=== PATIENT | male | born 1990 | race Caucasian/White ===

== ENCOUNTER 2017-08-06 08:36 | Inpatient (IN) ==
--- NOTE | 2017-08-06 09:10 | ED ---
[facility] General Chief Complaint: Psychiatric Symptoms Stated Complaint: Psych Eval/ [employer] Time Seen by Provider: 08/06/17 08:59 Source: patient Mode of arrival: ambulatory Limitations: no limitations History of Present Illness HPI Narrative: 27-year-old male presents to emergency department under [employer] act with law enforcement. Riggins act report states the patient made a statement that he was going to blow up [employer]. The patient says that someone said he said this, but he did not. He denies suicidal or homicidal ideations. Admits to using illicit drugs in 2017, but not since. He admits to smoking meth and crack prior to the new year. He denies alcohol use. Reports tobacco use and smokes cigars. Denies auditory or visual hallucinations. Denies psychiatric history. Denies chest pain, shortness breath, abdominal pain, nausea, vomiting , change in urine or stool. Reports chronic back pain. No known aggravating or relieving factors. Symptoms are moderate to severe in severity. Onset unknown. Duration unknown. Denies significant past medical history. No primary care provider. Allergies gentamicin. Related Data Home Medications Medication Instructions Recorded Confirmed No Known Home Medications 08/06/17 08/06/17 Allergies Allergy/AdvReac Type Severity Reaction Status Date / Time gentamicin Allergy Unknown Anaphylaxis Verified 08/06/17 09:17 Review of Systems ROS Unobtainable All other systems reviewed negative except as stated in [facility] Medical History Medical History Kidney anomaly, congenital (Acute) Surgical History Surgical History No history of previous surgery (Acute) Social History Social History Substance History: Past History Second Hand Smoke Exposure: Yes Smoking Status: Heavy tobacco smoker Tobacco Type: Cigarettes How Often Do You Have a Drink Containing Alcohol: Never Recent Travel in [facility] [place] within the Last 8 Weeks: No Recent Out of Country Travel within the Last 8 Weeks: No Exam Narrative Exam Narrative: GENERAL: Thin male patient, in no acute distress; disheveled SKIN: Warm and dry. HEAD: Atraumatic. Normocephalic. EYES: Pupils equal and round. ENT: Mucosa pink and moist. NECK: Supple. Trachea midline. CARDIOVASCULAR: Regular rate and rhythm. No murmur appreciated. RESPIRATORY: No accessory muscle use. Clear to auscultation. Breath sounds equal bilaterally. GASTROINTESTINAL: Abdomen soft, non-tender, nondistended. Hepatic and splenic margins not palpable. Bowel sounds are active 4 quadrants. MUSCULOSKELETAL: No obvious deformities. No clubbing. No cyanosis. No edema. BACK: No CVA tenderness. NEUROLOGICAL: Awake and alert. Oriented 3. No obvious cranial nerve deficits. Motor grossly within normal limits. Normal speech. Moves all extremities. 5/5 strength to all extremities. PSYCHIATRIC: No delusional thought processes. No hallucinations. Course Initial Documented Vital Signs Temperature 99 F 08/06/17 08:49 Pulse Rate 75 08/06/17 08:49 Respiratory Rate 18 08/06/17 08:49 Blood Pressure 125/90 08/06/17 08:49 Pulse Oximetry 98 08/06/17 08:49 Last Documented Vital Signs Temperature 98.0 F 08/06/17 18:00 Pulse Rate 63 08/06/17 18:00 Respiratory Rate 16 08/06/17 18:00 Blood Pressure 135/98 H 08/06/17 18:00 Pulse Oximetry 98 08/06/17 18:00 Medical Decision Making MDM Narrative Medical decision making narrative: Patient presents under a Riggins act. Physical examination and vital signs are essentially unremarkable. Patient has no medical complaints to report. Psych screen has been ordered. If the laboratory results are unremarkable, the patient will be medically cleared for psychiatric evaluation and disposition. Differential Diagnosis Differential Diagnosis: Medical clearance for psychiatric evaluation, homicidal ideation, substance abuse Lab Data Result diagrams: 08/06/17 08:55 08/06/17 08:55 Lab Results 08/06/17 08/06/17 08/06/17 Range/Units 08:55 08:55 09:17 WBC 7.5 (4.0-11.0) th/mm3 RBC 5.12 (4.50-5.90) mil/mm3 Hgb 15.8 (13.0-17.0) gm/dL Hct 47.2 (39.0-51.0) % MCV 92.2 (80.0-100.0) fL MCH 30.9 (27.0-34.0) pg MCHC 33.6 (32.0-36.0) % RDW 13.5 (11.6-17.2) % Plt Count 262 (150-450) th/mm3 MPV 7.7 (7.0-11.0) fL Neut % (Auto) 57.0 (16.0-70.0) % Lymph % (Auto) 34.2 (9.0-44.0) % [place] % (Auto) 6.8 (0.0-8.0) % Eos % (Auto) 0.9 (0.0-4.0) % Baso % (Auto) 1.1 (0.0-2.0) % Neut # (Auto) 4.3 (1.8-7.7) th/mm3 Lymph # (Auto) 2.6 (1.0-4.8) th/mm3 [place] # (Auto) 0.5 (0.0-0.9) th/mm3 Eos # (Auto) 0.1 (0.0-0.4) th/mm3 Baso # (Auto) 0.1 (0.0-0.2) th/mm3 WBC Differential . Differential Comment Auto diff final Sodium 140 (136-145) meq/L Potassium 3.9 (3.5-5.1) meq/L Chloride 106 (98-107) meq/L Carbon Dioxide 23.5 (21.0-32.0) meq/L Anion Gap 11 (5-15) meq/L BUN 12 (7-18) mg/dL Creatinine 1.05 (0.60-1.30) mg/dL Estimated GFR 84 L (>89) mL/min Random Glucose 95 (74-106) mg/dL Calcium 9.1 (8.5-10.1) mg/dL Total Bilirubin 0.4 (0.2-1.0) mg/dL AST 31 (15-37) U/L ALT 28 (12-78) U/L Alkaline Phosphatase 77 (45-117) U/L Total Protein 7.7 (6.4-8.2) g/dL Albumin 4.5 (3.4-5.0) g/dL TSH 0.727 (0.358-3.740) uIU/mL Salicylates 5.0 (2.8-20.0) mg/dL Acetaminophen Less than 2.0 L (10.0-30.0) mcg/mL Serum Alcohol Less than 3 (0-5) mg/dL Discharge Plan Discharge Disposition Patient Disposition: 30 Still Patient Discharge Condition Condition: Stable Discharge Details Discharge Problem: Medical clearance for psychiatric admission Physicians Team ED Provider: Nicole Baig ED Midlevel Provider: Angelina Thakkar Primary Care Provider: Jorge Casas Rxs /Orders / Referrals /Forms Prescriptions: No Action No Known Home Medications RF: 0 Status ED Status: Medically Cleared
[2017-08-06 11:38] LABS: Baso # (Auto) 0.1 th/mm3 (0.0-0.2); Baso % (Auto) 1.1 % (0.0-2.0); Eos # (Auto) 0.1 th/mm3 (0.0-0.4); Eos % (Auto) 0.9 % (0.0-4.0); Hematocrit 47.2 % (39.0-51.0); Hemoglobin 15.8 gm/dL (13.0-17.0); Lymph # (Auto) 2.6 th/mm3 (1.0-4.8); Lymph % (Auto) 34.2 % (9.0-44.0); Mean Corpuscular HGB Conc 33.6 % (32.0-36.0); Mean Corpuscular Hemoglobin 30.9 pg (27.0-34.0); Mean Corpuscular Volume 92.2 fL (80.0-100.0); Mean Platelet Volume 7.7 fL (7.0-11.0); Mono # (Auto) 0.5 th/mm3 (0.0-0.9); Mono % (Auto) 6.8 % (0.0-8.0); Neut # (Auto) 4.3 th/mm3 (1.8-7.7); Platelet Count 262 th/mm3 (150-450); Red Blood Count 5.12 mil/mm3 (4.50-5.90); Red Cell Distribution Width 13.5 % (11.6-17.2); White Blood Count 7.5 th/mm3 (4.0-11.0)
[2017-08-06 12:25] LABS: Alanine Aminotransferase 28 U/L (12-78); Albumin 4.5 g/dL (3.4-5.0); Alkaline Phosphatase 77 U/L (45-117); Anion Gap 11 meq/L (5-15); Aspartate Aminotransferase 31 U/L (15-37); Blood Urea Nitrogen 12 mg/dL (7-18); Calcium 9.1 mg/dL (8.5-10.1); Carbon Dioxide 23.5 meq/L (21.0-32.0); Chloride 106 meq/L (98-107); Glomerular Filtration Rate 84 mL/min (>89); Glucose,Random 95 mg/dL (74-106); Potassium 3.9 meq/L (3.5-5.1); Sodium 140 meq/L (136-145); Thyroid Stimulating Hormone 0.727 uIU/mL (0.358-3.740); Total Protein 7.7 g/dL (6.4-8.2)
[2017-08-06] MEDS ORDERED: LORazepam 1 MG Tablet PO PRN (23:23)
[2017-08-06] MEDS ORDERED: Aluminum/Magnesium/Simethacone Susp 30 ML UDC PO PRN (23:23)
[2017-08-06] MEDS ORDERED: Acetaminophen 325 MG Tablet PO PRN (23:23)
[2017-08-07] MEDS ORDERED: Senna/Docusate Sodium 8.6/50 MG Tablet PO SCH (09:00)
[2017-08-07 11:29] LABS: Calcium 9.8 mg/dL (8.5-10.1); Carbon Dioxide 29.4 meq/L (21.0-32.0); Potassium 4.3 meq/L (3.5-5.1)
[2017-08-07 11:33] LABS: Chol/HDL Ratio 2.99 Ratio; HDL Cholesterol 43.1 mg/dL (40.0-60.0)
--- NOTE | 2017-08-07 11:36 | P.HPPSY ---
Provisional Diagnosis Admission Date: August 06, 2017 21:41 [place] I.: 1. Adjustment disorder, unspecified Rule out adjustment disorder with disturbance of emotions and conduct Rule out some degree of more persistent underlying mental illness [place] II.: Deferred Competence Certification of Person's Competence To Provide Express and Informed Consent I have personally examined Baldev Fulton, a person being served at [facility] on, August 07, 2017 1136. Express and informed consent means consent voluntarily given in writing, by a competent person, after sufficient explanation and disclosure of the subject matter involved to enable the person to make a knowing and willful decision without any element of force, fraud, deceit, duress, or other form of constraint or coercion. This person is 18 years of age or older, is not now known to be incompetent to consent to treatment with a guardian advocate, and does not have a health care surrogate or proxy currently making medical treatment decisions. I have found this person to be one of the following: [] Competent to provide express and informed consent, as defined above, for voluntary admission to this facility and is competent to provide express and informed consent for treatment. He/she has the consistent capacity to make well reasoned, willful, and knowing decisions concerning his or her medical or mental health treatment. The person fully and consistently understands the purpose of the admission for examination/placement and is fully capable of personally exercising all rights assured [place] [] Incompetent to provide express and informed consent to voluntary admission, and this is incompetent to provide express and informed consent to treatment. The person must be transferred to involuntary status and a petition for a guardian advocate filed with the Circuit Court. [x] Refusing to provide express and informed consent to voluntary admission but is competent to provide express and informed consent for treatment. The person must be discharged or transferred to involuntary status. Form shall be completed within 24 hours of a person's arrival at the receiving facility and filed in the clinical record of each person: 1. Admitted on a voluntary basis 2. Permitted to provide express and informed consent to his/her own treatment 3. Allowed to transfer from involuntary to voluntary status 4. Prior to permitting a person to consent to his or her own treatment after having been previously found incompetent to consent to treatment. History of Present Illness Capacity: Has capacity (to consent for meds) Chief Complaint: Riggins Act History of Present Illness: Mr. Fulton is a 27 year-old male with no reported past psychiatric history who is admitted under a [place]ins Act from [place] alleging "Baldev told someone he will blow up [employer]." Reviewing the electronic medical record, I see no previous psychiatric contact within our system. Patient seen and examined with nurse. Chart reviewed. Case discussed with nursing staff. On my exam, patient adamantly denies the allegations in the Riggins Act. In fact, the patient notes that he is quite fond of the particular [employer] in question and was looking forward to returning to it once he could ( patient reports he had been trespassed from the [employer] some time ago). He maintains that he told the officer "I barely touched the door" and the officer misheard him to say "I'm gonna blow up the next store." Patient denies any suicidal or homicidal ideation, intent or plan noting "if I would've, it would have been done by now." I can elicit no depressive or hypomanic/manic symptoms. He denies any AVH, and I can elicit no frankly delusional material, although the patient does seem a little tense and guarded. The remainder of the psychiatric ROS is negative. The patient has no acute physical complaints. The nurse does bring to my attention a lesion on his R neck, but this appears to be a scar and patient notes it is several months old. Past psychiatric history: Patient denies a history of psychiatric diagnosis. He denies a history of inpatient or outpatient psychiatric treatment. He denies a history of suicide attempts. Family history: The patient denies a family history of mental illness or suicide. Chemical dependency history: The patient reports that he used to abuse synthetic cannabis but has not used any of this in 8 months. He denies any current substance use. Social history: The patient is presently homeless. He is single with no children. He has a grade 9 education and works under the table. He denies any history. He denies any active legal issues but notes that he has previous charges of marijuana possession as an adult and grand theft as a juvenile. No reported history of violent crime. He denies any access to guns or firearms. He denies any history of trauma. Past medical history: Patient denies any past medical history. Medications: Patient takes an occasional multivitamin. Allergies: To cat dander and gentamicin. - Inpatient Certification I certify that the inpatient services were ordered in accordance with Medicare regulations governing the order. This includes certification that hospital inpatient services are reasonable and necessary and in the case of services not specified as inpatient-only under 42 CFR 419.22(n), that they are appropriately provided as inpatient services in accordance to with the 2-midnight benchmark under 43 CFR 412.3(e) I certify that inpatient psychiatric hospital services are medically necessary. Evaluation and treatment and/or diagnostic testing are expected to improve the patient's condition. The patient needs on a daily basis, active treatment furnished directly by or requiring the supervision of inpatient psychiatric facility personnel. Estimated Total Length of Stay (Days): 3 Plans for Post Hospital Care: Not yet determined Review of Systems All other systems reviewed negative except as stated in [facility] - History History Provided By: Patient - Medical History Medical History: Medical History (Last Reviewed 08/06/17 @ 09:08 by JENNIE Owens) Kidney anomaly, congenital - Surgical History Surgical History: Surgical History (Last Updated 08/06/17 @ 11:15 by Ginger San) No history of previous surgery - Tobacco History Second Hand Smoke Exposure: No Tobacco Use In Past 30 Days: Yes Smoking Status: Current every day smoker Tobacco Type: Cigarettes - Alcohol History How Often Do You Have a Drink Containing Alcohol: Never - Substance Use History Substance History: No History of Abuse - Substance Use Type Methamphetamine Status: Early Remission Reason for Use: Get High Comment: Pt refused to answer ho wlong it has been since his last use. - Travel History Recent Travel in the [place] Within the Last 8 Weeks: No Recent Travel Out of the Country Within the Last 8 Weeks: No - Immunization History Tetanus Immunization: Unable to Assess Hx Influenza Vaccine This Season: Unable to Assess Quality Measures - Patient Strengths Patient's strengths (minimum of 2): Attending to basic needs. Verbally fluent. Medications and Allergies Active Medications: Active Medications Acetaminophen (Tylenol) 650 mg PO Q4H PRN PRN Reason: Pain 1-5 or Temp >101F Al Hydrox/Mg Hydrox/Simethicone (Mag-Al Plus Susp Liq) 30 ml PO Q6H PRN PRN Reason: DYSPEPSIA Al Hydroxide/Mg Hydroxide (Milk Of Magnesia Liq) 30 ml PO DAILY PRN PRN Reason: CONSTIPATION Lorazepam (Ativan) 1 mg PO Q6H PRN PRN Reason: MODERATE TO SEVERE ANXIETY Lorazepam (Ativan Inj) 1 mg IM Q6H PRN PRN Reason: MODERATE TO SEVERE ANXIETY Nicotine (Habitrol 21 Mg Patch.24 Hr) 1 patch T-DERMAL DAILY LUIS Patch Removal (Remove Old Patch) 1 each T-DERMAL HS LUIS Allergies Allergy/AdvReac Type Severity Reaction Status Date / Time gentamicin Allergy Unknown Anaphylaxis Verified 08/06/17 09:17 cat dander AdvReac Unknown Unknown Verified 08/07/17 15:48 Home Medications Medication Instructions Recorded Confirmed Type No Known Home Medications 08/06/17 08/06/17 History Results - Labs CBC & Chem 7: 08/06/17 08:55 08/07/17 09:57 Labs: Laboratory Results - last 24 hr 08/06/17 08/06/17 08/06/17 08:55 08:55 09:17 WBC 7.5 RBC 5.12 Hgb 15.8 Hct 47.2 MCV 92.2 MCH 30.9 MCHC 33.6 RDW 13.5 Plt Count 262 MPV 7.7 Neut % (Auto) 57.0 Lymph % (Auto) 34.2 [place] % (Auto) 6.8 Eos % (Auto) 0.9 Baso % (Auto) 1.1 Neut # (Auto) 4.3 Lymph # (Auto) 2.6 [place] # (Auto) 0.5 Eos # (Auto) 0.1 Baso # (Auto) 0.1 WBC Differential . Differential Comment Auto diff final Sodium 140 Potassium 3.9 Chloride 106 Carbon Dioxide 23.5 Anion Gap 11 BUN 12 Creatinine 1.05 Estimated GFR 84 L Random Glucose 95 Calcium 9.1 Total Bilirubin 0.4 AST 31 ALT 28 Alkaline Phosphatase 77 Total Protein 7.7 Albumin 4.5 Triglycerides Cholesterol LDL Cholesterol, Calc HDL Cholesterol Cholesterol/HDL Ratio TSH 0.727 Salicylates 5.0 Acetaminophen Less than 2.0 L Serum Alcohol Less than 3 08/07/17 09:57 WBC RBC Hgb Hct MCV MCH MCHC RDW Plt Count MPV Neut % (Auto) Lymph % (Auto) [place] % (Auto) Eos % (Auto) Baso % (Auto) Neut # (Auto) Lymph # (Auto) [place] # (Auto) Eos # (Auto) Baso # (Auto) WBC Differential Differential Comment Sodium 140 Potassium 4.3 Chloride 103 Carbon Dioxide 29.4 Anion Gap 8 BUN 18 Creatinine 1.17 Estimated GFR 74 L Random Glucose 50 L Calcium 9.8 Total Bilirubin AST ALT Alkaline Phosphatase Total Protein Albumin Triglycerides 126 Cholesterol 129 LDL Cholesterol, Calc 61 HDL Cholesterol 43.1 Cholesterol/HDL Ratio 2.99 TSH Salicylates Acetaminophen Serum Alcohol Labs reviewed. Urine toxicology not available for my review. Exam Vital signs: Vital Signs 08/06/17 14:00 08/06/17 18:00 08/07/17 00:07 Temperature 98.0 F 98.0 F 97.8 F Pulse Rate 63 63 79 Respiratory Rate 16 16 20 Blood Pressure 118/92 H 135/98 H 135/93 H Pulse Oximetry 98 98 98 08/07/17 05:36 08/07/17 05:51 Temperature 98.1 F 98.1 F Pulse Rate 46 L 46 L Respiratory Rate 18 18 Blood Pressure 118/64 118/64 Pulse Oximetry 98 Intake & Output 08/06/17 08/07/17 08/07/17 18:59 06:59 18:59 Weight 50.033 kg Other: Weight On Admission 46.9 kg Narrative: Physical examination completed by ED provider. On my examination today, the patient appears to be in no acute physical distress. No motor abnormalities noted. Labs and vital signs reviewed: Mental Status Examination Appearance: Appropriate Consciousness: Alert Orientation: x4 Motor Activity: Normal gait Speech: Unremarkable Language: Adequate Fund of Knowledge: Adequate Attention and Concentration: Adequate Memory: Unremarkable (Grossly intact on clinical exam) Mood: Other (No reported issues with mood) Affect: Anxious (Mild) Thought Process & Associations: Intact Thought Content: Appropriate Hallucination Type: None Delusion Type: Other (Somewhat guarded but no [place] delusions) Suicidal Ideation: No Suicidal Plan: No Suicidal Intention: No Homicidal Ideation: No Homicidal Plan: No Homicidal Intention: No Mental Status Exam Remarks: Insight and judgment are unclear Assessment and Plan - Assessment (1) Adjustment disorder Code(s): F43.20 - Adjustment disorder, unspecified Status: Acute - Plan Plan: 27-year-old male with psychiatric history as detailed above who presents under Riggins act. On my examination today, the patient adamantly denies the allegations in the Riggins act. He reports a paucity of psychiatric symptomatology. He does seem a little tense and guarded on examination, although this may be situational as he feels that he has been wrongly detained by police. Given our lack of psychiatric history with this patient, it seems prudent to observe the patient on the unit as allowed under the Riggins act. Admit inpatient. Continue to observe under the Riggins act. Patient does not believe he has any psychiatric issues and is not interested in psychotropic medications, and I have therefore ordered none. Vitals every shift. Counselor to see. Collateral information. Patient tells me that he has no went whom I can contact for collateral. Disposition planning. Estimated length of stay: 2- 3 days. Justification for Continued Inpatient Stay: Observing for impairment in safety Discharge Planning: Pending outcome of observation Request Healthcare Surrogate/Guardian Advocate?: No (1) Adjustment disorder Qualifiers: Adjustment disorder type: unspecified type Qualified Code(s): F43.20 - Adjustment disorder, unspecified
[2017-08-07 17:35] LABS: Hemoglobin A1c 5.3 % (4.3-6.0)
--- NOTE | 2017-08-08 11:50 | P.PNPSY ---
Subjective Chief Complaint: Riggins Act Remarks: Patient seen and examined with nurse. Chart reviewed. Case discussed with nursing staff. Case also discussed with patent legal assistant who reports patient's Riggins act will tomorrow morning at 08: 36. On my examination today, the patient presents as irritable. He denies any SI or HI. He denies any AVH but appears a little internally preoccupied. Additionally, following my evaluation I hear him yelling loudly and angrily at some unseen person. One of the floor staff, sitting one-to-one with another patient, tells me that the patient has been behaving in this fashion all morning. Patient is paranoid, particularly regarding blood draw. He implies that we are using his blood for some nefarious purpose. He continues to refuse to provide any numbers for collateral saying that even if he were willing to do so he has no numbers to provide. He refuses review of systems today saying that his physical health is "not this hospital's concern." I did try to educate the patient regarding his laboratory results. Vital Signs Temp Pulse Resp BP Pulse Ox 08/08/17 10:40 98.1 F 67 18 117/69 97 08/08/17 05:28 98.1 F 44 L 18 109/64 99 08/07/17 17:49 98.3 F 52 L 18 122/68 98 Intake and Output 08/07/17 08/08/17 08/08/17 22:59 06:59 14:59 Other: Weight 55.9 kg Patient Weight 08/09/17 06:59 Weight 55.9 kg Laboratory Results - last 24 hr 08/07/17 09:57 Hemoglobin A1c 5.3 Labs reviewed. Review of Systems other (Patient refused) Mental Status Examination Appearance: Disheveled Consciousness: Alert, Vigilant Orientation: x4 Motor Activity: Other (No motor abnormalities noted) Speech: Unremarkable Language: Adequate Fund of Knowledge: Adequate Attention and Concentration: Adequate Memory: Unremarkable (Grossly intact on clinical exam) Mood: Other (Dysphoric) Affect: Other (Restricted) Thought Process & Associations: Intact Thought Content: Delusional Hallucination Type: Other (Responding to internal stimuli) Delusion Type: Paranoid Suicidal Ideation: No Suicidal Plan: No Suicidal Intention: No Homicidal Ideation: No Homicidal Plan: No Homicidal Intention: No Insight: Poor Judgment: Poor Assessment and Plan - Assessment (1) Unspecified psychosis Code(s): F29 - Unspecified psychosis not due to a substance or known physiological condition Status: Acute - Plan Plan: With the benefit of further observation, it seems likely that the patient is 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 I fear that he is unpredictable with respect to risk for violence while the psychotic process is untreated and ongoing. I suspect he will require care beyond the expiration of the Riggins act to further assess and reduce this risk. I will initiate a petition for involuntary psychiatric hospitalization and consult for second opinion. I additionally do not believe that the patient is capacitated to consent for medication/treatment in his present state, and so I will request healthcare surrogate and guardian advocate. I did endeavor to reach out to the patient's father at the number listed in the EMR to see if he would be willing to serve as health care surrogate, but this number keeps ringing without opportunity to leave a voicemail. Continue to monitor on the inpatient unit. Continue other medications and care as ordered. Justification for Continued Inpatient Stay: Impairment in reality construction. Monitoring for impairment in safety. Discharge Planning: Pending outcome of observation/stabilization. Request Healthcare Surrogate/Guardian Advocate?: Yes (1) Unspecified psychosis Qualifiers: Psychosis type: unspecified psychosis type Qualified Code(s): F29 - Unspecified psychosis not due to a substance or known physiological condition
--- NOTE | 2017-08-09 11:56 | P.PNPSY ---
Subjective Chief Complaint: Riggins Act Remarks: Patient seen and examined with nurse. Chart reviewed. Case discussed with nursing staff. On my examination today, patient remains quite paranoid. He tells me "I'm gonna figure out what's going on." He remains particularly concerned about the blood that was drawn from him for labs. When I ask about SI /HI, patient says "just because I could hurt someone doesn't mean I will. I'm in control. I'm in control." He is frankly internally stimulated and giggles to himself. Later on, he is once again heard conversing with unseen interlocutor. Continues to refuse to provide any contact information for collateral. No physical complaints. Vital Signs Temp Pulse Resp BP Pulse Ox 08/09/17 08:46 54 L 116/77 08/09/17 06:18 97.5 F L 47 L 16 136/77 99 08/08/17 17:36 98.0 F 53 L 17 101/56 L Labs reviewed. No new labs. Review of Systems other (Limited by psychosis) Mental Status Examination Appearance: Disheveled Consciousness: Alert, Vigilant Orientation: x4 Motor Activity: Other (No abnormal motor movements noted) Speech: Unremarkable Language: Adequate Fund of Knowledge: Adequate Attention and Concentration: Adequate Memory: Unremarkable (Grossly intact on clinical exam) Mood: Other (Remains dysphoric) Affect: Other (Restricted) Thought Process & Associations: Intact Thought Content: Delusional Hallucination Type: Other (Internally preoccupied) Delusion Type: Paranoid Suicidal Ideation: No Suicidal Plan: No Suicidal Intention: No Homicidal Ideation: No Homicidal Plan: No Homicidal Intention: No Insight: Poor Judgment: Poor Assessment and Plan - Assessment (1) Unspecified psychosis Code(s): F29 - Unspecified psychosis not due to a substance or known physiological condition Status: Acute - Plan Plan: Unable to order any psychotropic medications for lack of anyone to provide consent. I once again endeavored to reach out the patient's father, the only contact number that we have on file, without success and patient informs me that father is . I do think that the patient would benefit from an antipsychotic medication. Counselor to try to identify HCS. Continue to monitor on the inpatient unit. Continue other medications and care as ordered. Justification for Continued Inpatient Stay: Impairment in reality construction. Risk for decompensation in less restrictive environment. Discharge Planning: Pending psychiatric stabilization Request Healthcare Surrogate/Guardian Advocate?: Yes (1) Unspecified psychosis Qualifiers: Psychosis type: unspecified psychosis type Qualified Code(s): F29 - Unspecified psychosis not due to a substance or known physiological condition
--- NOTE | 2017-08-09 11:57 | P.CONPSY ---
Provisional Diagnosis Admission Date: August 06, 2017 21:41 [place] I.: 1. Adjustment disorder, unspecified Rule out adjustment disorder with disturbance of emotions and conduct Rule out some degree of more persistent underlying mental illness [place] II.: Deferred History of Present Illness Service: Psychiatry Primary Care Provider: Jorge Casas MD History of Present Illness: The patient is a is a 27 year-old man, homeless in the area of [facility], single, unemployed, no reported past psychiatric history, no previous psychiatric admission, no previous suicidal attempts, he denies the use of drugs and alcohol, denies significant medical history, who is admitted under a Riggins Act from [place] alleging "Baldev told someone he will blow up [employer]." Consulted to me for second opinion. The patient is found sleeping his bed. Is calm, cooperative, but irritable, guarded, and seems to be minimizing symptomatology of psychosis. The patient says that he is here "for a bunch of lies". He says that he was just mad, but no violent. He says that he is better now. Reports good mood, he denies suicidal enemas ideation, he denies visual and auditory hallucinations. The patient is kind of guarded, but logical and coherent. Oriented 3. Review of Systems Neurologic: Denies abnormal hearing, Denies abnormal movements, Denies abnormal speech, Denies abnormal walking, Denies behavioral changes, Denies burning sensations, Denies confusion, Denies dizziness, Denies fainting, Denies frequent falls, Denies headache(s), Denies lack of coordination, Denies localized weakness, Denies loss of vision, Denies memory loss, Denies numbness, Denies other visual disturbances, Denies radiating pain, Denies restless legs, Denies convulsions, Denies seizure-like activity, Denies sensory deficit, Denies tingling, Denies tingling/numbness/burning sensations, Denies tremor(s), Denies unsteadiness, Denies weakness, Denies other Psychiatric: Denies abnormal sleep pattern, Denies anxiety, Denies behavioral changes, Denies change in appetite, Denies change in sex drive, Denies confusion , Denies depression, Denies difficulty concentrating, Denies hearing things others do not hear, Denies hopelessness, Denies irritability, Denies lack of enjoyment, Denies memory loss, Denies mood swings, Denies panic attacks, Denies paranoia, Denies seeing things others do not see, Denies sensing things others do not sense, Denies tactile hallucinations, Denies thoughts of hurting/killing others, Denies thoughts of hurting/killing yourself, Denies other PMFSH - History History Provided By: Patient - Medical History Medical History: Medical History (Last Reviewed 08/06/17 @ 09:08 by JENNIE Owens) Kidney anomaly, congenital - Surgical History Surgical History: Surgical History (Last Updated 08/06/17 @ 11:15 by Ginger San) No history of previous surgery - Tobacco History Second Hand Smoke Exposure: No Tobacco Use In Past 30 Days: Yes Smoking Status: Current every day smoker Tobacco Type: Cigarettes - Alcohol History How Often Do You Have a Drink Containing Alcohol: Never - Substance Use History Substance History: No History of Abuse - Substance Use Type Methamphetamine Status: Early Remission Reason for Use: Get High Comment: Pt refused to answer paula godinez it has been since his last use. - Travel History Recent Travel in the [facility] Within the Last 8 Weeks: No Recent Travel Out of the Country Within the Last 8 Weeks: No - Immunization History Tetanus Immunization: Unable to Assess Hx Influenza Vaccine This Season: Unable to Assess Medications and Allergies Active Medications: Active Medications Acetaminophen (Tylenol) 650 mg PO Q4H PRN PRN Reason: Pain 1-5 or Temp >101F Al Hydrox/Mg Hydrox/Simethicone (Mag-Al Plus Susp Liq) 30 ml PO Q6H PRN PRN Reason: DYSPEPSIA Al Hydroxide/Mg Hydroxide (Milk Of Magnesia Liq) 30 ml PO DAILY PRN PRN Reason: CONSTIPATION Lorazepam (Ativan) 1 mg PO Q6H PRN PRN Reason: MODERATE TO SEVERE ANXIETY Lorazepam (Ativan Inj) 1 mg IM Q6H PRN PRN Reason: MODERATE TO SEVERE ANXIETY Nicotine (Habitrol 21 Mg Patch.24 Hr) 1 patch T-DERMAL DAILY LUIS Last Admin: 08/09/17 09:20 Dose: Not Given Patch Removal (Remove Old Patch) 1 each T-DERMAL HS LUIS Last Admin: 08/08/17 20:52 Dose: Not Given Allergies Allergy/AdvReac Type Severity Reaction Status Date / Time gentamicin Allergy Unknown Anaphylaxis Verified 08/06/17 09:17 cat dander AdvReac Unknown Unknown Verified 08/07/17 15:48 Home Medications Medication Instructions Recorded Confirmed Type No Known Home Medications 08/06/17 08/06/17 History Exam Vital signs: Vital Signs 08/08/17 17:36 08/09/17 06:18 08/09/17 08:46 Temperature 98.0 F 97.5 F L Pulse Rate 53 L 47 L 54 L Respiratory Rate 17 16 Blood Pressure 101/56 L 136/77 116/77 Pulse Oximetry 99 Intake & Output 08/08/17 08/09/17 08/09/17 18:59 06:59 18:59 Weight 55.9 kg Mental Status Examination Appearance: Dirty Consciousness: Alert, Vigilant Orientation: x4 Motor Activity: Other (No motor abnormalities noted) Speech: Unremarkable Language: Adequate Fund of Knowledge: Adequate Attention and Concentration: Adequate Memory: Unremarkable (Grossly intact on clinical exam) Mood: Other (Dysphoric) Affect: Other (Restricted) Thought Process & Associations: Intact Thought Content: Delusional Hallucination Type: Other (Responding to internal stimuli) Delusion Type: Paranoid Suicidal Ideation: No Suicidal Plan: No Suicidal Intention: No Homicidal Ideation: No Homicidal Plan: No Homicidal Intention: No Insight: Poor Judgment: Poor Assessment and Plan - Assessment (1) Unspecified psychosis Code(s): F29 - Unspecified psychosis not due to a substance or known physiological condition Status: Acute - Plan Plan: With the benefit of further observation, it seems likely that the patient is 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 I fear that he is unpredictable with respect to risk for violence while the psychotic process is untreated and ongoing. I suspect he will require care beyond the expiration of the Riggins act to further assess and reduce this risk. I will initiate a petition for involuntary psychiatric hospitalization and consult for second opinion. I additionally do not believe that the patient is capacitated to consent for medication/treatment in his present state, and so I will request healthcare surrogate and guardian advocate. I did endeavor to reach out to the patient's father at the number listed in the EMR to see if he would be willing to serve as health care surrogate, but this number keeps ringing without opportunity to leave a voicemail. Continue to monitor on the inpatient unit. Continue other medications and care as ordered. I have seen and examined this patient personally, reviewed documentation, I agree and concur with Dr. Soto assessment and plan. Consult appreciated. Justification for Continued Inpatient Stay: Agree with Dr. Soto assessment and plan. Request Healthcare Surrogate/Guardian Advocate?: Yes (1) Unspecified psychosis Qualifiers: Psychosis type: unspecified psychosis type Qualified Code(s): F29 - Unspecified psychosis not due to a substance or known physiological condition
--- NOTE | 2017-08-10 09:33 | P.PNPSY ---
Subjective Chief Complaint: Riggins Act Remarks: Patient seen and examined. Chart reviewed. Patient was unfortunately allowed to sign voluntary by the nurse overnight on the basis of an outdated order from 08/07. I have discussed this difficulty with the department legal paraprofessional who in turn has spoken with the public health clinical nurse specialist. It seems that this voluntary form is valid and binding and, in the absence of new behavior meeting involuntary criteria, a new petition cannot be filed. Case discussed with nursing staff. Case discussed in treatment team. Treatment team notes patient is exhibiting psychotic behavior including ongoing internal stimulation. On my exam today, patient remains quite paranoid. He tells me "I'm trying to decide who to trust. " His insight into his psychotic illness is poor, and patient tries to convince me that he is malingering these symptoms, "maybe I'm doing this intentionally." He is internally stimulated. No physical complaints. Vital Signs Temp Pulse Resp BP Pulse Ox 08/10/17 05:46 97.7 F 56 L 18 122/64 98 08/09/17 17:51 98.3 F 89 17 116/60 Labs reviewed. No new labs. Review of Systems other (Limited secondary to paranoia) Mental Status Examination Appearance: Disheveled Consciousness: Alert, Vigilant Orientation: x4 Motor Activity: Other (No motor abnormalities noted) Speech: Unremarkable Language: Adequate Fund of Knowledge: Adequate Attention and Concentration: Adequate Memory: Unremarkable (Grossly intact on clinical exam) Mood: Other (Remains dysphoric) Affect: Other (Restricted) Thought Process & Associations: Intact Thought Content: Delusional Hallucination Type: Other (Ongoing internal stimulation) Delusion Type: Paranoid Suicidal Ideation: No Suicidal Plan: No Suicidal Intention: No Homicidal Ideation: No Homicidal Plan: No Homicidal Intention: No Insight: Poor Judgment: Poor Assessment and Plan - Assessment (1) Unspecified psychosis Code(s): F29 - Unspecified psychosis not due to a substance or known physiological condition Status: Acute - Plan Plan: Patient is now voluntary. He has no interest in psychotropic medications. Unless some new behavior presents itself to support a new petition for involuntary psychiatric hospitalization and appointment of a guardian advocate, I fear we may have reached an impasse. Patient would likely benefit from an antipsychotic, if he will consent for it over the weekend. Continue to monitor on the inpatient unit in the meantime. Continue other care as ordered. Justification for Continued Inpatient Stay: Monitoring for impairment in safety. Impairment in reality construction. Discharge Planning: Pending outcome of observation (1) Unspecified psychosis Qualifiers: Psychosis type: unspecified psychosis type Qualified Code(s): F29 - Unspecified psychosis not due to a substance or known physiological condition
--- NOTE | 2017-08-11 12:56 | P.PNPSY ---
Subjective Chief Complaint: Riggins Act Remarks: Pt seen and discussed with staff. Chart reviewed. Pt was admitted due to aggressive behavior and psychosis. He has been quiet and withdrawn on unit. He has been observed actively responding to internal stimuli and remains paranoid. During attempt to interview, pt braced self against door and yelled delusional statements about his lunch. Later [facility] staff intervention, he calmed and came out of room into day area. He refuses interview stating that he doesn't want to talk about lunch. Mental Status Examination Appearance: Disheveled Consciousness: Alert, Vigilant Orientation: x4 Motor Activity: Other (No motor abnormalities noted) Speech: Unremarkable Language: Adequate Fund of Knowledge: Adequate Attention and Concentration: Adequate Memory: Unremarkable (Grossly intact on clinical exam) Mood: Other (Remains dysphoric) Affect: Labile Thought Process & Associations: Intact Thought Content: Delusional Hallucination Type: Other (Ongoing internal stimulation) Delusion Type: Paranoid Suicidal Ideation: No Suicidal Plan: No Suicidal Intention: No Homicidal Ideation: No Homicidal Plan: No Homicidal Intention: No Insight: Poor Judgment: Poor Assessment and Plan - Assessment (1) Unspecified psychosis Code(s): F29 - Unspecified psychosis not due to a substance or known physiological condition Status: Acute - Plan Plan: Continue current tx plan. Justification for Continued Inpatient Stay: impairments in reality testing Request Healthcare Surrogate/Guardian Advocate?: Yes (1) Unspecified psychosis Qualifiers: Psychosis type: unspecified psychosis type Qualified Code(s): F29 - Unspecified psychosis not due to a substance or known physiological condition
--- NOTE | 2017-08-12 14:02 | P.PNPSY ---
Subjective Chief Complaint: Riggins Act Remarks: Pt seen and discussed with staff. Yesterday he was agitated and barricaded himself in his room. He calmed later in room after eating nursing staff procured chicken fingers for pt to eat. He continues to refuse medications and becomes increasingly hostile during interview and makes several bizarre paranoid ideations towards MD, RN, staff and unit scale. Mental Status Examination Appearance: Disheveled Consciousness: Alert, Vigilant Orientation: x4 Motor Activity: Other (No motor abnormalities noted) Speech: Unremarkable Language: Adequate Fund of Knowledge: Adequate Attention and Concentration: Adequate Memory: Unremarkable (Grossly intact on clinical exam) Mood: Other (Remains dysphoric) Affect: Labile Thought Process & Associations: Intact Thought Content: Delusional Hallucination Type: Other (Ongoing internal stimulation) Delusion Type: Paranoid Suicidal Ideation: No Suicidal Plan: No Suicidal Intention: No Homicidal Ideation: No Homicidal Plan: No Homicidal Intention: No Insight: Poor Judgment: Poor Assessment and Plan - Assessment (1) Unspecified psychosis Code(s): F29 - Unspecified psychosis not due to a substance or known physiological condition Status: Acute - Plan Plan: Continue current tx plan. Justification for Continued Inpatient Stay: impairments in reality testing Request Healthcare Surrogate/Guardian Advocate?: Yes (1) Unspecified psychosis Qualifiers: Psychosis type: unspecified psychosis type Qualified Code(s): F29 - Unspecified psychosis not due to a substance or known physiological condition
--- NOTE | 2017-08-13 12:40 | P.PNPSY ---
Subjective Chief Complaint: Riggins Act Remarks: Patient seen and examined with nurse, Suly. Chart reviewed. Case discussed with nursing staff. Episode over the weekend where patient became agitated and barricaded himself in his room per notes. On my examination today, patient remains quite irritable and paranoid. He denies SI/HI but it is not clear whether he is reliable to contract for safety. He remains paranoid. He denies AVH but still exhibits some degree of internal preoccupation. He remains steadfastly opposed to any sort of psychotropic medication treatment. He initially maintains that he cannot take pills or shots. When I suggest liquids or ODT formulations, patient admits "I'm not going to" take any medication. No physical complaints. Review of Systems All other systems reviewed negative except as stated in HPI (Limitation: Psychosis) Mental Status Examination Appearance: Disheveled Consciousness: Alert, Vigilant Orientation: x4 Motor Activity: Other (No abnormal motor movements noted) Speech: Unremarkable Language: Adequate Fund of Knowledge: Adequate Attention and Concentration: Adequate Memory: Unremarkable (Grossly intact on clinical exam) Mood: Other (Remains dysphoric) Affect: Labile Thought Process & Associations: Intact Thought Content: Delusional Hallucination Type: Other (Internally preoccupied) Delusion Type: Paranoid Suicidal Ideation: No Suicidal Plan: No Suicidal Intention: No Homicidal Ideation: No Homicidal Plan: No Homicidal Intention: No Insight: Poor Judgment: Poor Assessment and Plan - Assessment (1) Unspecified psychosis Code(s): F29 - Unspecified psychosis not due to a substance or known physiological condition Status: Acute - Plan Plan: Episodic agitation over weekend. I maintain that patient remains psychotic and unpredictable with respect to risk for violence in less restrictive setting. He is opposed to any sort of psychotropic medications. Without a guardian advocate, I do not see a mechanism for providing this patient with antipsychotic medication, which I do believe is indicated in the present case. I will therefore initiate a new petition for involuntary psychiatric hospitalization and once again request healthcare surrogate/guardian advocate. I have discussed the case with Dr. Whitney, who saw the patient for a second opinion last time, and he will return to reevaluate the patient once again. Continue other medications and care as ordered. Justification for Continued Inpatient Stay: Impairment in reality construction. Concern for impairment in safety in less restrictive setting. High risk for decompensation in less restrictive setting. Discharge Planning: Pending psychiatric stabilization Request Healthcare Surrogate/Guardian Advocate?: Yes (1) Unspecified psychosis Qualifiers: Psychosis type: unspecified psychosis type Qualified Code(s): F29 - Unspecified psychosis not due to a substance or known physiological condition
--- NOTE | 2017-08-14 11:59 | P.PNPSY ---
Subjective Chief Complaint: Riggins Act Remarks: Patient seen and examined with counselor and nurse. Chart reviewed. Case discussed with nursing staff. Case discussed in treatment team. On my exam, patient presents as irritable and paranoid. He refuses to sit with us for the interview, preferring to stand. He appears quite watchful and guarded. He continues to refuse any sort of treatment for his mental illness. I try to discuss with him my impressions of his case and try to discuss my rationale for recommending treatment, but he rebuffs my efforts to do so. He initially once again requests a new physician but then rescinds this request saying that he does not want to tell his story all over again. He complains of "broken bones" and initially refuses to discuss where he believes he has broken bones. He finally gestures to his R clavicle and left lower chest. He does not appear to be in any physical distress. No other physical complaints. Vital Signs Temp Pulse Resp BP Pulse Ox 08/14/17 05:42 98.0 F 82 16 126/65 99 Labs reviewed. No new labs. Review of Systems unobtainable due to mental condition (Limitation: Psychosis) Mental Status Examination Appearance: Disheveled Consciousness: Alert, Vigilant Orientation: x4 Motor Activity: Other (No motoric abnormalities noted) Speech: Unremarkable Language: Adequate Fund of Knowledge: Adequate Attention and Concentration: Adequate Memory: Unremarkable (Grossly intact on clinical exam) Mood: Oppositional, Other (Dysphoric) Affect: Irritable Thought Process & Associations: Intact Thought Content: Delusional Hallucination Type: Other (Remains internally preoccupied) Delusion Type: Paranoid Suicidal Ideation: No Homicidal Ideation: No Insight: Poor Judgment: Poor Assessment and Plan - Assessment (1) Unspecified psychosis Code(s): F29 - Unspecified psychosis not due to a substance or known physiological condition Status: Acute - Plan Plan: Unable to order psychotropic medications for lack of anyone to provide consent. Patient would benefit from an antipsychotic in my opinion. Continue to monitor on high acuity unit. I will check a chest x-ray given patient's physical complaints. Continue other care as ordered. Justification for Continued Inpatient Stay: Impairment in reality construction. High risk for decompensation in less restrictive environment. Discharge Planning: Pending outcome of [place] on Request Healthcare Surrogate/Guardian Advocate?: Yes (1) Unspecified psychosis Qualifiers: Psychosis type: unspecified psychosis type Qualified Code(s): F29 - Unspecified psychosis not due to a substance or known physiological condition
--- NOTE | 2017-08-14 16:04 | XR ---
EXAM DATE: 08/14/2017 4:00 PM EDT AGE/SEX: 27 years / Male INDICATIONS: Chest pain. CLINICAL DATA: This is the patient's initial encounter. Patient reports that signs and symptoms have been present for 1 day and indicates a pain score of 5/10. MEDICAL/SURGICAL HISTORY: None. None. COMPARISON: No prior exams available for comparison. FINDINGS: PA and lateral views of the chest demonstrate the lungs to be symmetrically aerated without evidence of mass, infiltrate or effusion. The cardiomediastinal contours are unremarkable. Osseous structures are intact. CONCLUSION: Negative examination. Electronically signed by: Clif Garcias MD 08/14/2017 4:02 PM EDT
--- NOTE | 2017-08-15 15:12 | P.PNPSY ---
Subjective Chief Complaint: [place] Remarks: Patient seen and examined with nurse. Chart reviewed. Case discussed with nursing staff. No behavioral issues overnight. On my exam, patient remains paranoid but is striking a more conciliatory tone. He says that he is feeling less angry. He attributes his irritability earlier in the hospital stay to frustration with how he was treated by the police prior to admission. He denies paranoia. Denies AH, insisting that he just talks to himself. Does not think he has a mental illness and does not think he needs treatment. No physical complaints besides some mild foot pain. We discuss CXR results. Vital Signs Temp Pulse Resp BP Pulse Ox 08/15/17 05:57 97.8 F 83 16 100/61 98 08/14/17 17:07 54 L 16 101/58 L 100 Labs reviewed. No new labs. Review of Systems All other systems reviewed negative except as stated in HPI Mental Status Examination Appearance: Other (Fair) Consciousness: Alert Orientation: x4 Motor Activity: Other (No abnormal motor movements noted) Speech: Unremarkable Language: Adequate Fund of Knowledge: Adequate Attention and Concentration: Adequate Memory: Unremarkable (Grossly intact on clinical exam) Mood: Other (Less irritable) Affect: Irritable (Decreasing) Thought Process & Associations: Intact Thought Content: Delusional Hallucination Type: Other (Internally preoccupied) Delusion Type: Paranoid Suicidal Ideation: No Homicidal Ideation: No Insight: Poor Judgment: Poor Assessment and Plan - Assessment (1) Unspecified psychosis Code(s): F29 - Unspecified psychosis not due to a substance or known physiological condition Status: Acute - Plan Plan: [place]igg[place] act court tomorrow. If the patient is retained with a guardian advocate, we will plan to initiate an antipsychotic medication. Continue other medications and care as ordered. Justification for Continued Inpatient Stay: Impairment in reality construction. High risk for decompensation in less restrictive environment. Discharge Planning: Pending outcome of [place] tomorrow. Request Healthcare Surrogate/Guardian Advocate?: Yes (1) Unspecified psychosis Qualifiers: Psychosis type: unspecified psychosis type Qualified Code(s): F29 - Unspecified psychosis not due to a substance or known physiological condition
--- NOTE | 2017-08-16 11:28 | P.DSPSY ---
Psychiatry Discharge Summary Inpatient Psychiatric care?: Yes Advance Directives: No Mental Health Advance Directive: No Health Care Proxy: No - Admission Admission Date: August 06, 2017 21:41 - Admission Diagnosis (1) Adjustment disorder Code(s): F43.20 - Adjustment disorder, unspecified Brief History: Mr. Fulton is a 27 year-old male with no reported past psychiatric history who is admitted under a [place] Act from [facility] alleging "[facility] told someone he will blow up [employer]." Reviewing the electronic medical record, I see no previous psychiatric contact within our system. Patient seen and examined with nurse. Chart reviewed. Case discussed with nursing staff. On my exam, patient adamantly denies the allegations in the [place] Act. In fact, the patient notes that he is quite fond of the particular [employer] in question and was looking forward to returning to it once he could ( patient reports he had been trespassed from the [employer] some time ago). He maintains that he told the officer "I barely touched the door" and the officer misheard him to say "I'm gonna blow up the next store." Patient denies any suicidal or homicidal ideation, intent or plan noting "if I would've, it would have been done by now." I can elicit no depressive or hypomanic/manic symptoms. He denies any AVH, and I can elicit no frankly delusional material, although the patient does seem a little tense and guarded. The remainder of the psychiatric ROS is negative. The patient has no acute physical complaints. The nurse does bring to my attention a lesion on his R neck, but this appears to be a scar and patient notes it is several months old. Past psychiatric history: Patient denies a history of psychiatric diagnosis. He denies a history of inpatient or outpatient psychiatric treatment. He denies a history of suicide attempts. Family history: The patient denies a family history of mental illness or suicide. Chemical dependency history: The patient reports that he used to abuse synthetic cannabis but has not used any of this in 8 months. He denies any current substance use. Social history: The patient is presently homeless. He is single with no children. He has a grade 9 education and works under the table. He denies any history. He denies any active legal issues but notes that he has previous charges of marijuana possession as an adult and grand theft as a juvenile. No reported history of violent crime. He denies any access to guns or firearms. He denies any history of trauma. Past medical history: Patient denies any past medical history. Medications: Patient takes an occasional multivitamin. Allergies: To cat dander and gentamicin. Tobacco Use In Past 30 Days: Yes How Often Do You Have a Drink Containing Alcohol: Never Hospital Course: Patient was admitted to a locked, inpatient psychiatric unit. Appropriate precautions were in place throughout patient's hospital stay. Patient was seen and examined on the unit by psychiatry and also visited by counselor. The patient consistently declined any psychotropic medications, and we could not begin any medications over the patient's objection as we had no one to serve as health care surrogate. With the benefit of observation on the inpatient unit, it seems likely that the patient struggles with a primary psychotic disorder. He was noted to be internally stimulated and paranoid on the unit. The patient' s case was presented to the too[place] act court today, and the court stenographer has ordered the patient's discharge from the inpatient psychiatric unit today as the patient requests. I related to the court and it remains my opinion now that the patient is unpredictable with respect to risk for violence as a consequence of his psychosis. The patient will be discharged AGAINST MEDICAL ADVICE. He is refusing psychiatric follow-up. Patient to return to psychiatric emergency room for any concerning symptoms as part of a general safety plan. - Discharge Discharge Date: 08/16/17 - Discharge Diagnosis (1) Unspecified psychosis Diagnosis: Principal Code(s): F29 - Unspecified psychosis not due to a substance or known physiological condition Status: Acute Discharge Disposition: Long-Term - Discharge Instructions Discharge Diet: Regular Diet Activities You Can Perform: Weight Bearing As Tolerat - Discharge Time <= 30 minutes Mental Status Examination Appearance: Other (Fair) Consciousness: Alert Orientation: Person, Place (at least) Motor Activity: Other (No motor abnormalities noted) Speech: Unremarkable Language: Adequate Fund of Knowledge: Adequate Attention and Concentration: Adequate Memory: Unremarkable (Grossly intact on clinical exam) Mood: Other (Mildly dysphoric) Affect: Blunt (Slight irritable edge) Thought Process & Associations: Intact Thought Content: Delusional Hallucination Type: Other (Remains a little bit internally preoccupied) Delusion Type: Paranoid Suicidal Ideation: No Suicidal Plan: No Suicidal Intention: No Homicidal Ideation: No Homicidal Plan: No Homicidal Intention: No Insight: Poor Judgment: Poor Discharge/Advance Care Plan - Results Vital Signs: Last Vital Signs Temp 98 F 08/16/17 06:25 Pulse 47 L 08/16/17 06:25 Resp 17 08/16/17 06:25 BP 106/62 08/16/17 06:25 Pulse Ox 99 08/15/17 15:57 Lab Results: Laboratory Results Hemoglobin A1c 5.3 % (4.3-6.0) 08/07/17 09:57 Triglycerides 126 mg/dL (42-150) 08/07/17 09:57 Cholesterol 129 mg/dL (120-200) 08/07/17 09:57 LDL Cholesterol, Calc 61 mg/dL (0-99) 08/07/17 09:57 HDL Cholesterol 43.1 mg/dL (40.0-60.0) 08/07/17 09:57 TSH 0.727 uIU/mL (0.358-3.740) 08/06/17 08:55 Summary of Procedures: None done Imaging: ITS Impressions Chest X-Ray 08/14/17 00:00 CONCLUSION: Negative examination. Pending Results: None - Medications Number of antipsychotic medications at discharge: 0 - Discharge Care Plan Goals to Promote Your Health: * To prevent worsening of your condition and complications * To maintain your health at the optimal level Directions to Meet Your Goals: Take your medications as prescribed Follow your dietary instruction Follow activity as directed Keep your appointments as scheduled Take your immunizations and boosters as scheduled If your symptoms worsen call your PCP, if no PCP go to Urgent Care Center or Emergency Room For 28/08 questions related to your inpatient stay or results of tests pending at discharge, please contact Dr. Jayant Soto MD at [phone] Smoking is Dangerous to Your Health. Avoid second hand smoking (1) Adjustment disorder Qualifiers: Adjustment disorder type: unspecified type Qualified Code(s): F43.20 - Adjustment disorder, unspecified (1) Unspecified psychosis Qualifiers: Psychosis type: unspecified psychosis type Qualified Code(s): F29 - Unspecified psychosis not due to a substance or known physiological condition
== END 2017-08-16 12:45 | disposition left against medical advice (07) ==
LOC: NEPD 08:36 → NEDA 21:41 → H270 22:38
PROVIDERS: ADMIT Psychiatry & Neurology Psychiatry; ATTEND Psychiatry & Neurology Psychiatry